=== PATIENT | male | born 1950 | race Caucasian/White ===

== ENCOUNTER 2016-11-07 02:44 | Inpatient (IN) | payer MEDICARE, OTHER ==
[~2016-11-07] VITALS: Ht 157.5 cm; Wt 74.5 kg
[2016-11-07] VITALS (23 sets, daily range): BP systolic 110–140; BP diastolic 56–78; PULSE 67–78; RESP 14–23; TEMP 98.3; Ht 157.5 cm; Wt 74.5 kg
[~2016-11-07 02:44] MED LIST: LANS30CA47 PO
[2016-11-07] MEDS ORDERED: MULTI PO (03:19)
[2016-11-07 03:42] LABS: BASOPHILS % 0.3 % (0.0-2.0); EOSINOPHILS # 0.2 10^3/ul (0.0-0.5); EOSINOPHILS % 1.6 % (0.0-7.0); HEMATOCRIT 45.9 % (42.0-52.0); HEMOGLOBIN 15.7 g/dl (14.0-18.0); LYMPHOCYTES # 1.2 10^3/ul (0.8-2.9); LYMPHOCYTES % 11.8 % (15.0-51.0); MEAN CORPUSCULAR HGB CONC 34.2 g/dl (32.0-37.0); MEAN CORPUSCULAR VOLUME 90.5 fl (82.0-101.0); MONOCYTE # 0.5 10^3/ul (0.3-0.9); MONOCYTES % 5.4 % (0.0-11.0); NEUTROPHIL # 7.9 10^3/ul (1.6-7.5); NEUTROPHILS % 80.6 % (39.0-77.0); PLATELET COUNT 276 10^3/UL (140-415); POSITIVE DIFF @See below; RED BLOOD COUNT 5.07 10^6/ul (4.70-6.10); WHITE BLOOD COUNT 9.8 10^3/ul (4.8-10.8)
[2016-11-07] MEDS ORDERED: morphine 4 MG/ML VIAL IV ONE (03:42)
[2016-11-07] MEDS ORDERED: ONDANSETRON 4 MG INJ IV ONE (03:42)
--- NOTE | 2016-11-07 03:42 | RADRPT ---
PROCEDURE: XR Abdomen. CLINICAL INDICATION: Abdominal pain TECHNIQUE: AP abdomen x-ray. COMPARISON: None. FINDINGS: Lower sternotomy wires seen. The bowel gas pattern is nonobstructive. Right-sided stool is seen. Mul tiple calcified pelvic phleboliths. Free air cannot be excluded on the supine radiograph. No bony ab normality is seen.. IMPRESSION: Grossly nonobstructed bowel gas pattern. RPTAT: HLBE Nena Riley Physician Date Time Electronically viewed and signed by Nena Riley Physician on 11/07/2016 03:42 LE/
[2016-11-07] MEDS ORDERED: SOD CHLORIDE 0.9% 500 ML IV ONE (04:00)
[2016-11-07 04:01] LABS: ALBUMIN 3.8 g/dl (3.3-4.9); ALBUMIN/GLOBULIN RATIO 1.15; BILIRUBIN,INDIRECT 0.3 mg/dl (0-1.1); BILIRUBIN,TOTAL 0.3 mg/dl (0.2-1.3); CALCIUM 9.7 mg/dl (8.4-10.2); CREATININE 0.81 mg/dl (0.61-1.24); TOTAL PROTEIN 7.1 g/dl (6.1-8.1)
--- NOTE | 2016-11-07 04:22 | RADRPT ---
PROCEDURE: CT Abdomen and pelvis without contrast. CLINICAL INDICATION: Abdominal pain. TECHNIQUE: CT scan of the abdomen and pelvis was performed on a multi-detector high-resolution CT scanner. Contiguous axial images were obtained from the lung bases to the ischial tuberosities wit hout intravenous contrast. Coronal and sagittal reformatted images were also obtained. Images were reviewed on the PACS workstation. One or more of the following dose reduction techniques were used: - Automated exposure control. - Adjustment of the mA and/or kV according to patient size. - Use of iterative reconstruction technique. Exam CTD/vol = 11.47 mGy. Total exam DLP = 713.14 mGy-cm. COMPARISON: None. FINDINGS: Evaluation of the lung bases demonstrates mild bibasilar atelectasis. Abdomen: The liver is normal in size. There is no focal mass or dilatation of the biliary tree. T he gallbladder is not distended. The spleen, pancreas and bilateral adrenal glands are within goldie l limits. Bilateral kidneys are normal in size with a small 9 mm isodense lesion within the posteri or mid left kidney suggestive of a hemorrhagic cyst. There is no radiopaque renal or ureteral calcu horace identified. There is no hydronephrosis or hydroureter. There is no retroperitoneal adenopathy. The abdominal aorta is of normal caliber with scattered atherosclerotic calcifications. There is a small umbilical hernia containing fat. There are small bubbles of free air within the mid to left upper abdomen adjacent to a loop of small bowel suggestive of perforation. There is surroun ding stranding. There is no bowel obstruction. A normal appendix is identified. There is divertic ulosis of the descending and sigmoid colon without evidence of diverticulitis. Pelvis: The bladder is unremarkable. The prostate is mildly enlarged. There are bilateral small in guinal hernias containing fat. There is mild pelvic free fluid. There is no significant pelvic keon opathy. Evaluation of the osseous structures demonstrates no suspicious lytic or blastic lesion. IMPRESSION: Focal small bowel perforation within the mid to left upper abdomen with small air bubbles and strand ing. Descending and sigmoid diverticulosis without evidence of diverticulitis. Small umbilical and bilateral inguinal hernias containing fat. Mildly enlarged prostate. Mild pelvic free fluid. Vascular calcifications reflective of atherosclerosis. Mild bibasilar atelectasis. A call report was made to ED nurse Zurdo) at 04:20 a.m. .Trevor Garrison MD, MD Date Time Electronically viewed and signed by .Trevor Garrison MD, MD on 11/07/2016 04:22 .T/
[2016-11-07] MEDS ORDERED: HYDROmorphONE 1 MG/ML SYG ONE (04:25)
[2016-11-07] MEDS ORDERED: HYDROmorphONE 1 MG/ML SYG IV ONE (04:31)
[2016-11-07] MEDS ORDERED: PIPER-TAZO 3.375 GM IV (PMX) 100 ML IVPB STA (05:27)
[2016-11-07] MEDS ORDERED: HYDROmorphONE 1 MG/ML SYG IV STA (05:28)
--- NOTE | 2016-11-07 05:36 | ERA ---
ER Documentation Chief Complaint Date/Time DATE: 11/07/16 TIME: 05:34 Chief Complaint lower abd pain 1 week wost today HPI This is a 65-year-old male lower abdominal pain with a week that is worse today. Pain is mild to moderate in intensity. He said the pain first started a week ago and was a dull ache in the lower abdomen, today became sharp and he started on distention of his abdomen. 2-3 episodes of vomiting which nonbilious. Obvious nausea. No diarrhea. No fevers or chills. No other current complaints. ROS All systems reviewed and are negative except as per history of present illness. Medications Home Meds Discontinued Reported Medications Multivitamins* (Theragran*) 1 Tab Tab, 1 TAB PO DAILY, TAB 11/07/16 Lansoprazole* (Prevacid*) 30 Mg Capsule.dr, 30 MG PO DAILY, CAP 01/19/14 Allergies Allergies: Coded Allergies: Sulfa (Sulfonamide Antibiotics) (Unverified Allergy, Unknown, 11/07/16) family history having sulfa drugs allergy PMhx/Soc History of Surgery: Yes (brain sx,chest sx for tumor,lt knee opa,) Anesthesia Reaction: No Hx Neurological Disorder: No Hx Respiratory Disorders: No Hx Cardiac Disorders: No Hx Psychiatric Problems: No Hx Miscellaneous Medical Probl: No Hx Substance Use: No Hx Tobacco Use: No Smoking Status: Never smoker Physical Exam Vitals Vital Signs Date Time Temp Pulse Resp B/P Pulse Ox O2 Delivery O2 Flow Rate FiO2 11/07/16 05:13 98.3 63 16 110/78 97 Nasal Cannula 2.0 11/07/16 02:53 98.3 68 20 119/74 99 Physical Exam Const: [] Head: Atraumatic Eyes: Normal Conjunctiva ENT: Normal External Ears, Nose and Mouth. Neck: Full range of motion..~ No meningismus. Resp: Clear to auscultation bilaterally Cardio: Regular rate and rhythm, no murmurs Abd: Soft, non tender, non distended. Normal bowel sounds Skin: No petechiae or rashes Back: No midline or flank tenderness Ext: No cyanosis, or edema Neur: Awake and alert Psych: Normal Mood and Affect Result Diagram: 11/07/16 0328 11/07/16 0328 Results 24 hrs Laboratory Tests Test 11/07/16 03:28 White Blood Count 9.810^3/ul Red Blood Count 5.0710^6/ul Hemoglobin 15.7g/dl Hematocrit 45.9% Mean Corpuscular Volume 90.5fl Mean Corpuscular Hemoglobin 31.0pg Mean Corpuscular Hemoglobin Concent 34.2g/dl Red Cell Distribution Width 12.0% Platelet Count 13034^3/UL Mean Platelet Volume 10.0fl Neutrophils % 80.6% Lymphocytes % 11.8% Monocytes % 5.4% Eosinophils % 1.6% Basophils % 0.3% Nucleated Red Blood Cells % 0.0/100WBC Neutrophils # 7.910^3/ul Lymphocytes # 1.210^3/ul Monocytes # 0.510^3/ul Eosinophils # 0.210^3/ul Basophils # 0.010^3/ul Nucleated Red Blood Cells # 0.010^3/ul Sodium Level 140mmol/L Potassium Level 4.0mmol/L Chloride Level 102mmol/L Carbon Dioxide Level 29mmol/L Anion Gap 13 Blood Urea Nitrogen 15mg/dl Creatinine 0.81mg/dl Glucose Level 155mg/dl Calcium Level 9.7mg/dl Total Bilirubin 0.3mg/dl Direct Bilirubin 0.00mg/dl Indirect Bilirubin 0.3mg/dl Aspartate Amino Transf (AST/SGOT) 21IU/L Alanine Aminotransferase (ALT/SGPT) 33IU/L Alkaline Phosphatase 49IU/L Total Protein 7.1g/dl Albumin 3.8g/dl Globulin 3.30g/dl Albumin/Globulin Ratio 1.15 Lipase 204U/L Current Medications Medications (Trade) Dose Ordered Sig/Benny Route PRN Reason Start Time Stop Time Status Last Admin Dose Admin Morphine Sulfate (morphine) 4 mg ONCE ONCE IV 11/07/16 03:42 11/07/16 03:43 DC 11/07/16 03:47 Ondansetron HCl 4 mg 4 mg ONCE ONCE IV 11/07/16 03:42 11/07/16 03:43 DC 11/07/16 03:47 Sodium Chloride (NS) 500 ml @ 500 mls/hr Q1H ONCE IV 11/07/16 04:00 11/07/16 04:59 DC 11/07/16 03:48 Hydromorphone HCl (Dilaudid) 1 mg STK-MED ONCE .ROUTE 11/07/16 04:25 11/07/16 04:26 DC Hydromorphone HCl 1 mg 1 mg ONCE ONCE IV 11/07/16 04:31 11/07/16 04:32 DC 11/07/16 04:52 Piperacillin Sod/ Tazobactam Sod (Zosyn 3.375gm/ 100 ml (Pmx)) 100 ml @ 200 mls/hr ONCE STAT IVPB 11/07/16 05:27 11/07/16 05:56 Hydromorphone HCl (Dilaudid) 1 mg ONCE STAT IV 11/07/16 05:28 11/07/16 05:29 DC 11/07/16 05:33 Procedures/MDM SravanMedical decision makin-year-old gentleman with perforated viscus. CT does show air under the diaphragm. I consulted with the on-call surgeon and he recommended admission and the patient able, to the patient's earlier this morning. On-call physician for Dr. Yang was made aware and agreed with assessment plan. Departure Diagnosis: Primary Impression: Abdominal pain Qualified Code: R10.84 - Generalized abdominal pain Condition: Stable ANGELINA ANTONY Nov 07, 2016 05:36
[2016-11-07] MEDS ORDERED: SUCCINYLCHOLINE CHLORIDE 100 MG/5 ML SYG IV ONE (07:00)
[2016-11-07] MEDS ORDERED: DEXTROSE 5%-0.45% NACL 1,000 ML IV SCH (07:30)
[2016-11-07] MEDS: PIPER-TAZO 3.375 GM IV (PMX) 100 ML IVPB SCH ×3 (08:48→18:00)
[2016-11-07] MEDS ORDERED: PANTOPRAZOLE 40 MG INJ IV SCH (09:00)
[2016-11-07 09:03] LABS: INR 0.98
[2016-11-07 09:04] LABS: PARTIAL THROMBOPLASTIN TIME 29.5 Sec (25.0-35.0)
--- NOTE | 2016-11-07 09:15 | RADRPT ---
PROCEDURE: XR Chest. CLINICAL INDICATION: Preop. TECHNIQUE: Frontal view chest x-ray. COMPARISON: Abdomen pelvis CT of the same day. FINDINGS: The cardiomediastinal silhouette is unremarkable. Aortic atherosclerotic vascular calcifications are identified. Bibasilar atelectasis is noted. No pneumothorax, pleural effusion or consolidation is seen. No acute osseous abnormality is noted. There are post cardiac surgery changes with sternotomy wires and mediastinal clips. IMPRESSION: 1. Bibasilar atelectasis. 2. Aortic atherosclerosis. 3. Prior sternotomy. 4. Otherwise no acute cardiopulmonary abnormality. RPTAT: HH .Sourav Gerard MD, Date Time Electronically viewed and signed by .Sourav Gerard MD, on 11/07/2016 09:14 .N/
--- NOTE | 2016-11-07 09:22 | HP ---
DATE OF ADMISSION: 11/07/2016 IDENTIFYING DATA: The patient is a 65-year-old male admitted to the hospital with abdominal pain of approximately six days' duration. HISTORICAL EVENTS: The patient states it was six days ago he the noted the onset of poorly-localized lower abdominal discomfort that waxed and waned until approximately 12 hours prior to admission, when the pain markedly increased. Importantly, he continued to have bowel movements up until 12 hours prior to admission without symptoms of gastrointestinal bleeding. He had some mild discomfort described as burning in the back of his throat on a couple of occasions during this week, that seemed to occur after meals. There has been no exertional radiating neck, arm, or jaw discomfort, or substernal chest discomfort. Yesterday, he did note some chills and sweats. He has had no pathologic symptoms. PRESENT MEDICATIONS: 1. Multivite. 2. Prevacid 30 mg daily. PAST MEDICAL HISTORY: 1. History of gastroesophageal reflux. 2. History of malignant brain tumor in 1965. Received cobalt treatment. Plate was required. 3. 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 4. History of a "bursa sac" removed from his neck. 5. Left knee arthroscopic surgery in 2010. 6. Colonoscopy in February 2013 that revealed a polyp. 7. No history of diabetes, heart disease. 8. History of low testosterone level. SOCIAL HISTORY: He is a nonsmoker. Rarely drinks. FAMILY HISTORY: Family history to be reviewed later. PHYSICAL EXAMINATION: GENERAL APPEARANCE: [place] male. VITAL SIGNS: BP 120/72, respirations were 18. He was afebrile. HEENT: Extraocular muscles were full. Nose, mouth and throat, normal. NECK: Supple. There was no jugular venous distention, thyroid enlargement, adenopathy. LUNGS: Clear. HEART: Rhythm regular. 1/6 systolic murmur. No 3rd or 4th sound. ABDOMEN: Bowel sounds are present. Liver and spleen not enlarged. There was minimal tenderness involving the suprapubic, right lower and left lower quadrant. RECTAL EXAM: Not performed. EXTREMITIES: No edema. No calf tenderness. NEUROLOGIC: No lateralizing motor weakness. IMPRESSION: Viscus perforation of small bowel versus colon. GI and surgery to see. PLAN: Continue Zosyn. IV fluids have been ordered. To continue NPO status. Dictated By: Lyle Yang MD /kayce/cristobal /Document#: [id number]
[2016-11-07] MEDS: HYDROmorphONE 1 MG/ML SYG IV PRN (13:04)
--- NOTE | 2016-11-07 14:00 | CONS ---
Date/Time of Note Date/Time of Note DATE: 11/07/16 TIME: 13:59 Assessment/Plan Assessment/Plan Additional Assessment/Plan [facility] INPATIENT CONSULTATION NOTE DATE OF SERVICE: 11/07/2016 PLACE OF SERVICE: [facility], fifth floor ASSESSMENT AND PLAN: A very-pleasant 65-year-old gentleman with a rather complicated past history involving multiple different types of malignancies, presenting with a small bowel localized perforation of unclear etiology. Patient requires surgical exploration to clarify the etiology as well as deal with the perforation. There is a chance that this may be from a malignant process, but because of presence of bowel perforation and location, I recommended we proceed with surgery as soon as possible. I explained the approach of laparoscopic exploration with possible open exploration, possible partial bowel resection, and possible ostomy with the patient and his longtime friend and answered all of their questions. Patient and family appear to understand and agreed with plans. With above assessment, I've recommended the followin. Keep n.p.o. 2. Continue on broad-spectrum antimicrobials 3. To the operating room for above Thank you very much for having me involved in the care of this very pleasant patient and wonderful family. If you have any questions, please feel free to contact me at [phone]. Nature of presenting problem: High severity Please note that, given the extensive number of diagnoses or management options , the moderate amount and/or complexity of data needed to be reviewed, and high risk of complications and/or morbidity or mortality, this qualifies as high complexity type of decision-making. Disclaimers: 1. Inadvertent spelling and grammatical errors are likely due to electronic health record (EHR)/dictation software use and do not reflect on the quality of delivered patient care. 2. The electronic timestamp recorded on this note does not necessarily reflect the actual date and time of the visit. 3. Portions of this note are created through electronic templates and computer algorithms that may bring in information either from the system or from other physicians and providers that are outside of my control and may not be always accurate. In general (but not always) this happens either in the beginning or at the end of the note. My portions of the gathered data are generally dictated in 1 continuous block of text and entered into one field in the EHR. 4. There may be other unanticipated errors in the note that are outside of my control. I can only attest to the portions of the note that I have created. Updated clinical summary: A very-pleasant 65-year-old gentleman with a rather complicated past history involving multiple different types of malignancies, presenting with a small bowel localized perforation of unclear etiology. Comorbidities: 1. GERD. 2. History of malignant brain tumor in 1965. Received cobalt treatment with plate insertion. 3. 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 4. History of a "bursa sac" removed from his neck. 5. Left knee arthroscopic surgery in 2010. 6. Colonoscopy in February 2013 that revealed a polyp. 7. No history of diabetes, heart disease. 8. History of low testosterone level. CONSULTATION REQUESTED BY: Di Yang MD Dear Dr. Yang: Thank you very much for the opportunity to be involved in the care of this very pleasant gentleman and his wonderful family. HISTORY OF PRESENT ILLNESS: The patient is a very pleasant 65-year-old gentleman with above-mentioned comorbidities who were kindly asked consult regarding management of possible perforated small intestine. Patient reported having abdominal pain since last which would make it approximately week in duration. Pain was in mid abdomen and progressively worse over the last 2 days. Associated nausea and vomiting but no blood in the stool or urine. Last bowel movement was yesterday and no issues with diarrhea or constipation. Patient had intentional weight loss a few years ago with dieting , but no major reported weight changes over the last 6 months. No radiation of pain. No major exacerbating or alleviating factors. Pressure-like and at times sharp, 7 out of 10 at its worse. No other major complaints. ALLERGIES: NO KNOWN DRUG ALLERGIES MEDICATIONS Documented in the electronic records and reviewed by me. Please see the electronic records for details, as well as details for inpatient medications which were also reviewed by me. SOCIAL HISTORY: The patient currently retired.-Tob;-ETOH (very occasionally drinks);-IVDU FAMILY HISTORY: There are no significant medical, surgical or oncologic issues in the family as reported by the patient or reflected in the chart. REVIEW OF SYSTEMS: Other than mentioned above, there were no other pertinent positives or pertinent negatives in an otherwise complete 14 point review of systems. PHYSICAL EXAMINATION GENERAL: The patient appears to be a very pleasant gentleman of non- descent lying in bed, appearing stated age, and otherwise in no acute distress. BMI: 30 VITAL SIGNS: AVSS (please also see auto important data if available as well as the electronic records) HEENT: Normocephalic and atraumatic. Extraocular muscles and hearing are grossly intact bilaterally and symmetrically. Sclerae are nonicteric. Oral cavity is clear; oral mucosa appear to be pink and moist. Dentition: fair. Patient's forehead contains a surgical scar and there appears to be pulsations visible on the forehead. NECK: Supple. There is no lymphadenopathy or JVD. There is no submental, submandibular or supraclavicular lymphadenopathy. CHEST: Rises symmetrically with each breath; patient is breathing comfortably. There are no audible wheezes, rales or rhonchi on the gross exam. HEART: Pulse is regular and palpable on the right wrist. Capillary refill is normal. Carotid pulses are palpable bilaterally and symmetrically in the neck. EXTREMITIES: Lower extremities contain no pitting edema around the ankles bilaterally and symmetrically. ABDOMEN: Abdomen is soft, mild to moderately tender in the mid abdomen and nondistended. No evidence of ascites, organomegaly, caput medusae, engorged subcutaneous veins, or other abnormalities. There are no peritoneal signs or guarding. SKIN: Appears to be pink and feels warm to touch. NEUROLOGIC: Awake, alert, and follows commands appropriately. LABORATORY DATA: See below IMAGING: See electronic chart. Please note that I've personally reviewed all pertinent available images and I agree in general with their overall reported findings. CT abdomen and pelvis 11/07/2016 [facility] IMPRESSION: Focal small bowel perforation within the mid to left upper abdomen with small air bubbles and stranding. Descending and sigmoid diverticulosis without evidence of diverticulitis. Small umbilical and bilateral inguinal hernias containing fat. Mildly enlarged prostate. Mild pelvic free fluid. Vascular calcifications reflective of atherosclerosis. Mild bibasilar atelectasis. Consultation Date/Type/Reason Admit Date/Time Nov 07, 2016 at 05:31 Social History Smoking Status: Never smoker Exam/Review of Systems Vital Signs Vitals Vital Signs Date Time Temp Pulse Resp B/P Pulse Ox O2 Delivery O2 Flow Rate FiO2 11/07/16 12:44 73 11/07/16 11:49 100.0 20 115/56 96 11/07/16 06:40 Room Air 11/07/16 05:13 2.0 Intake and Output 11/06/16 11/06/16 11/07/16 15:00 23:00 07:00 Intake Total 600 ml Balance 600 ml Results Result Diagram: 11/07/16 0328 11/07/16 0328 Results 24 hrs Laboratory Tests Test 11/07/16 03:28 11/07/16 08:27 White Blood Count 9.8 Red Blood Count 5.07 Hemoglobin 15.7 Hematocrit 45.9 Mean Corpuscular Volume 90.5 Mean Corpuscular Hemoglobin 31.0 Mean Corpuscular Hemoglobin Concent 34.2 Red Cell Distribution Width 12.0 Platelet Count 276 Mean Platelet Volume 10.0 Neutrophils % 80.6 H Lymphocytes % 11.8 L Monocytes % 5.4 Eosinophils % 1.6 Basophils % 0.3 Nucleated Red Blood Cells % 0.0 Neutrophils # 7.9 H Lymphocytes # 1.2 Monocytes # 0.5 Eosinophils # 0.2 Basophils # 0.0 Nucleated Red Blood Cells # 0.0 Sodium Level 140 Potassium Level 4.0 Chloride Level 102 Carbon Dioxide Level 29 Anion Gap 13 Blood Urea Nitrogen 15 Creatinine 0.81 Glucose Level 155 Calcium Level 9.7 Total Bilirubin 0.3 Direct Bilirubin 0.00 Indirect Bilirubin 0.3 Aspartate Amino Transf (AST/SGOT) 21 Alanine Aminotransferase (ALT/SGPT) 33 Alkaline Phosphatase 49 Total Protein 7.1 Albumin 3.8 Globulin 3.30 H Albumin/Globulin Ratio 1.15 Lipase 204 Prothrombin Time 13.0 Prothrombin Time Ratio 1.0 INR International Normalized Ratio 0.98 Activated Partial Thromboplast Time 29.5 Medications Medications Current Medications Hydromorphone HCl 0.5 mg 0.5 mg Q4H PRN IV PAIN Last administered on 11/07/16 13:04; Admin Dose 0.5 MG; Start 11/07/16 at 07:30 Dextrose/Sodium Chloride 1,000 ml @ 125 mls/hr Q8H IV Last administered on 08:16; Admin Dose 125 MLS/HR; Start 11/07/16 at 07:30 Piperacillin Sod/ Tazobactam Sod (Zosyn 3.375gm/ 100 ml (Pmx)) 100 ml @ 200 mls /hr Q6 IVPB Last administered on 11/07/16 12:47; Admin Dose 200 MLS/HR; Start 11/07/16 at 08:30 Pantoprazole (Protonix Iv) 40 mg DAILY@06 IV Last administered on 11/07/16t 09: 16; Admin Dose 40 MG; Start 11/07/16 at 09:00 JOHANNA NOE M.D. Nov 07, 2016 14:00
[2016-11-07] MEDS ORDERED: BUPIVACAINE 0.5%/EPI (SDV) 10 ML INJ ONE (16:02)
--- NOTE | 2016-11-07 16:10 | RADRPT ---
Vent Rate: 70 bpm RR Interval: 0 msec [place] Interval: 150 msec QRS Duration: 90 msec QT Interval: 382 msec QTC Interval: 412 msec P-R-T [place]: 64 - 70 - 63 degrees Normal sinus rhythm Septal infarct , age undetermined Abnormal ECG Electronically Signed By: Otis Tavares [id number]
[2016-11-07] MEDS ORDERED: ROCURONIUM 50 MG INJ ONE (16:36)
[2016-11-07] MEDS ORDERED: MIDAZOLAM 1 MG/ML 2 ML INJ ONE (16:36)
[2016-11-07] MEDS ORDERED: PROPOFOL 20 ML ONE (16:36)
[2016-11-07] MEDS ORDERED: LIDOCAINE 1% (MDV) 20 ML INJ ONE (16:37)
[2016-11-07] MEDS ORDERED: ROPIVACAINE 0.2% 20 ML VIAL ONE (16:39)
[2016-11-07] MEDS ORDERED: DEXAMETHASONE 4 MG/ML 1 ML INJ ONE (18:55)
[2016-11-07] MEDS ORDERED: ONDANSETRON 4 MG INJ ONE (18:55)
[2016-11-07] MEDS ORDERED: FAMOTIDINE 20 MG INJ ONE (18:55)
[2016-11-07] MEDS ORDERED: MEPERIDINE 25 MG INJ IV PRN (19:30)
[2016-11-07] MEDS ORDERED: METOCLOPRAMIDE 10 MG INJ IV PRN (19:30)
[2016-11-07] MEDS ORDERED: DIPHENHYDRAMINE 50 MG INJ IV PRN (19:30)
[2016-11-07] MEDS ORDERED: LORAZEPAM 2 MG INJ IV PRN (19:30)
[2016-11-07] MEDS ORDERED: ONDANSETRON 4 MG INJ IV PRN (19:30)
[2016-11-07] MEDS ORDERED: HYDROmorphONE (0.2 MG/ML) 10ML SYG IV PRN ×2 (19:30)
[2016-11-07] MEDS ORDERED: SUGAMMADEX SODIUM 200 MG/2 ML VIAL IV ONE (19:50)
[2016-11-07] MEDS ORDERED: NA PHOSPHATE/BIPHOS 133 ML ENEMA PR PRN (20:00)
[2016-11-07] MEDS ORDERED: HYDROmorphONE 1 MG/ML SYG IV PRN ×2 (20:00)
[2016-11-07] MEDS ORDERED: HYDROCODONE/APAP (5/325) TAB PO PRN ×2 (20:00)
[2016-11-07] MEDS ORDERED: BISACODYL 10 MG SUPP PR PRN (20:00)
--- NOTE | 2016-11-07 20:15 | OPR ---
Date/Time of Note Date/Time of Note DATE: 11/07/16 TIME: 20:14 Operative Report Surgeon see signature line Operative\\Procedure Findings [facility] INPATIENT OPERATIVE NOTE PLACE OF SERVICE: [facility] DATE OF SURGERY: 11/07/2016 PREOPERATIVE DIAGNOSIS: 1. Perforated viscus 2. History of malignant brain tumor in 1965. Received cobalt treatment with plate insertion. 3. 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 4. History of a "bursa sac" removed from his neck. 5. Left knee arthroscopic surgery in 2010. 6. Colonoscopy in February 2013 that revealed a polyp. 7. No history of diabetes, heart disease. 8. History of low testosterone level. 9. GERD. POSTOPERATIVE DIAGNOSIS: 1. Perforated small intestine from small intestine diverticulosis and diverticulitis 2. History of malignant brain tumor in 1965. Received cobalt treatment with plate insertion. 3. 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 4. History of a "bursa sac" removed from his neck. 5. Left knee arthroscopic surgery in 2010. 6. Colonoscopy in February 2013 that revealed a polyp. 7. No history of diabetes, heart disease. 8. History of low testosterone level. 9. GERD. OPERATION: 1. Laparoscopic, hand-assisted (hybrid) partial enterectomy (60 cm proximal jejunum) with primary anastomosis 2. Lysis of adhesions 3. Abdominal lavage 4. Umbilical hernia repair (no mesh) SURGEON: Johanna Noe M.D. BRUISE TRIMMER: Stewart ANESTHESIA: General endotracheal tube anesthesia ANESTHESIOLOGIST: Rema Mcdonnell M.D. BRIEF SUMMARY: An otherwise uncomplicated laparoscopic, hand-assisted (hybrid) partial enterectomy (60 cm proximal jejunum) with primary anastomosis, lysis of adhesions, abdominal lavage, umbilical hernia repair (no mesh) was performed with findings of perforated small intestine from small intestine diverticulosis and diverticulitis. Updated clinical summary: A very-pleasant 65-year-old gentleman with a rather complicated past history involving multiple different types of malignancies, presenting with a small bowel localized perforation of unclear etiology. Comorbidities: 1. GERD. 2. History of malignant brain tumor in 1965. Received cobalt treatment with plate insertion. 3. 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 4. History of a "bursa sac" removed from his neck. 5. Left knee arthroscopic surgery in 2010. 6. Colonoscopy in February 2013 that revealed a polyp. 7. No history of diabetes, heart disease. 8. History of low testosterone level. BRIEF HISTORY: The patient is a very pleasant 65-year-old gentleman with a rather complicated past history involving multiple different types of malignancies, presenting with a small bowel localized perforation of unclear etiology. Patient requires surgical exploration to clarify the etiology as well as deal with the perforation. There is a chance that this may be from a malignant process, but because of presence of bowel perforation and location, I recommended we proceed with surgery as soon as possible. I explained the approach of laparoscopic exploration with possible open exploration, possible partial bowel resection, and possible ostomy with the patient and his longtime friend and answered all of their questions. We reviewed the operation in detail as well as the risks, benefits, alternatives, and expected outcomes of this operation. After careful consideration of all the risks, benefits, and alternatives, the patient and family appeared to understand those risks and wished to proceed with surgery. For a detailed report of my consultation with patient and family, please refer to my separate consultation note. STATEMENT OF THE INFORMED CONSENT: The patient and family appeared to understand the risks of the operation to include, but not be limited to risk of postoperative pain and scar tissue, possible infection or bleeding requiring other interventions such as opening the wound, placement of drainage catheters, or other operative interventions; possible injury to surrounding to structures including bowel, bladder, bile duct, or blood vessels, or solid organs such as liver, kidney, or pancreas requiring other interventions or procedures; possible leakage of bowel from anastomotic sites or suture lines causing significant increase in morbidity and mortality and requiring multiple interventions including but not limited to, placement of drainage catheters, imaging studies, as well as operative interventions; possible other source of sepsis such as urinary tract infections or pneumonias, or other sources of potentially life threatening problems such as deep venous thrombus formation causing pulmonary embolism, myocardial arrhythmias and infarctions, and even . After careful consideration of all their options, the patient and family appeared to understand and wished to proceed with surgery. DESCRIPTION OF PROCEDURE: After obtaining informed consent, the patient was brought into the operating room and was placed in a normal supine position, where successful general endotracheal tube anesthesia was performed. Intravenous access was already in place and intravenous antimicrobials had been appropriately chosen and dosed prior to the operation. The patient's abdominal skin was prepped and draped from the nipple line down to the level of the upper thighs in the usual sterile fashion. We then called a surgical time-out where the patient's identification, date of , nature of the operation, allergies , presence of intravenous antimicrobials, presence of needed equipment, and any other concerns were reviewed and agreed upon by all members of the operating room team. We then started the operation by placing a 5 mm skin incision in the left upper quadrant midclavicular subcostal area using scalpel to go through skin and then placed a 5 mm applied trocar into the peritoneal space using direct entry technique visualizing all the layers of the abdominal wall as we entered. We insufflated the abdominal cavity to a maximum pressure of 15 mmHg. Note that there was no injury to underlying structures. We then placed another 5 mm skin incision in the left lower quadrant and one in the umbilicus through a pre- existing small less than 1 cm hernia that we knew preoperatively. This was all under direct visualization and after injection of the sites with quarter percent Marcaine. We proceeded to do a laparoscopic exploration of the abdominal cavity. We encountered matted small intestine and mid abdominal area and we quickly realized that pure laparoscopy was not going to be sufficient for adequate exploration. For this reason, I placed a 9 cm skin incision to include the umbilicus in the middle using scalpel to go through the skin and then cautery to go through the subcutaneous fat as well as the fascia in the midline and placed a GelPort device and converted to a laparoscopic hand-assisted approach with portions of the operation done through the hand assist in an open fashion, and hence the high-grade nature of the procedure. With careful lysis of adhesions, we were able to determine that the patient had perforation that appeared to be sealed in proximal jejunum in an area that eventually was shown to be diverticular disease of the small intestine. We carefully ran the bowel from the ligament of Treitz down to the ileocecal valve and noted diverticular disease near the area of proximal jejunum with a perforation was noted. We also inspected the ascending, transverse, descending , and sigmoid colon down into the pelvis and noticed no other major abnormalities or issues that require surgical resection. The bowel appeared to be viable. There is minimal amount of purulent fluid in the abdominal cavity that was suctioned off using the suction field sampling technician. I did not see any evidence of malignancy. I also felt the peritoneal surfaces as well as the anterior and posterior surfaces of the left and right lobe of the liver and did not notice any other abnormalities. With this information, we exteriorized the area of perforation of the proximal jejunum and performed resection of the area to include 60 cm of small intestine that contained the majority of the diverticular disease that was present. We used combination of hand-held blue (all) load of the DOMENICO stapler to transect proximally and distally and then used the 5 mm LigaSure device to come across the mesentery of the bowel taking care to come down in a V shape and include the 2 areas that appear to be enlarged lymph nodes right underneath the area of the perforation. Again my suspicion for malignancy was low. We sent the resected bowel to pathology for permanent sections marking the distal and using a silk suture. I then performed a standard [id number], functional end-to-end anastomosis using several enterotomies on the antimesenteric side of the bowel and connecting the 2 using wondering of the bowel (blue) load of the hand-held DOMENICO stapler, followed by closing of the enterotomy size using running 4-0 PDS suture and reinforcement with interrupted 3-0 silk Lembert style sutures. We also placed a silk suture at the angle of sorrow and close the mesenteric defect using running 3-0 Vicryl suture. This all came together very nicely and the anastomosis was widely patent. We then changed gloves and remove the towels of it used to isolate the anastomosis and dropped the bowel back into the abdominal cavity. We then used approximately 2 L of normal saline to irrigate the abdominal cavity and suctioned the excess to a clear drainage in all 4 quadrants. We then removed all her equipment from the abdominal cavity, closed the midline fascia using running #1 PDS suture after removal of the hernia sac and sending it to pathology for permanent sections, washed the wounds with copious amounts of normal saline, and then closed the skin using running 4-0 Monocryl suture in the midline and interrupted 4-0 Monocryl suture for the 2 endoscopic 5 mm port sites. We injected the sites with quarter percent Marcaine and then concluded the operation. Light dressing was then applied. At the end of the operation, both the sponge count and needle count were reportedly correct x2. The patient tolerated the procedure without any reported complications. ESTIMATED BLOOD LOSS: Less than 10 mL. BLOOD OR BLOOD PRODUCT TRANSFUSIONS: None to my knowledge. SPECIMENS: 1. Proximal jejunum (60 cm) with distal margin marked with a silk suture 2. Umbilical hernia sac COMPLICATIONS: None. DISPOSITION: Recovery area. Disclaimers: 1. Inadvertent spelling and grammatical errors are likely due to electronic health record (EHR)/dictation software use and do not reflect on the quality of delivered patient care. 2. The electronic timestamp recorded on this note does not necessarily reflect the actual date and time of the visit. 3. Portions of this note are created through electronic templates and computer algorithms that may bring in information either from the system or from other physicians and providers that are outside of my control and may not be always accurate. In general (but not always) this happens either in the beginning or at the end of the note. My portions of the gathered data are generally dictated in 1 continuous block of text and entered into one field in the EHR. 4. There may be other unanticipated errors in the note that are outside of my control. I can only attest to the portions of the note that I have created. JOHANNA NOE M.D. Nov 07, 2016 20:15
[2016-11-07] MEDS: D5W-0.45 NACL + KCL 20 MEQ 1,000 ML IV SCH (21:54)
[2016-11-07 22:42] LABS: ADD UMIC YES; UR ASCORBIC ACID NEGATIVE (NEGATIVE); UR BILIRUBIN (Dip) NEGATIVE (NEGATIVE); UR BLOOD (Dip) 2+ mg/dL (NEGATIVE); UR CLARITY CLOUDY (CLEAR); UR COLOR YELLOW (YELLOW); UR GLUCOSE (Dip) NEGATIVE (NEGATIVE); UR KETONES (Dip) NEGATIVE (NEGATIVE); UR LEUKOCYTE ESTERASE (Dip) NEGATIVE Leu/ul (NEGATIVE); UR NITRITE (Dip) NEGATIVE (NEGATIVE); UR RBC 22 /HPF (0-5); UR SPECIFIC GRAVITY (Dip) 1.025 (1.003-1.030); UR TOTAL PROTEIN (Dip) 1+ mg/dl (NEGATIVE); UR UROBILINOGEN (Dip) NEGATIVE (NEGATIVE)
[2016-11-08] VITALS (11 sets, daily range): BP systolic 100–151; BP diastolic 56–78; PULSE 64–72; RESP 17–20
[2016-11-08] MEDS: PIPER-TAZO 3.375 GM IV (PMX) 100 ML IVPB SCH ×3 (00:59→13:07)
[2016-11-08] MEDS: D5W-0.45 NACL + KCL 20 MEQ 1,000 ML IV SCH ×2 (05:58→13:07)
--- NOTE | 2016-11-08 07:14 | CONS ---
DATE OF ADMISSION: 11/07/2016 DATE OF CONSULTATION: 11/07/2016 Thank you for having me see this patient. HISTORY OF PRESENT ILLNESS: As you know, he is a 65-year-old gentleman, who comes into the hospital with a probable small bowel perforation. Apparently, the patient was in his usual state of health until this past . He developed abdominal cramping. This felt as if he had the stomach flu, but he had no other associated symptoms, such as diarrhea or fever. Nonetheless, he went to [place] over the weekend. He felt progressively worse with the pain becoming more moderate from a mild onset. In addition, he had difficulty focusing and felt in general poorly. He then developed a shaking chill and worsening abdominal pain. This became so severe he sought medical attention yesterday. He denies ingestion of any foreign body that he knows of. He denies any cocaine usage. He denies any antecedent gastrointestinal problem but did have a colon polyp removed by Dr. Murrell 2 years ago. Apparently, he has a history of reflux in the past. He did have an episode of nausea and vomiting when his pain was at its worst. Since being admitted and being placed on antibiotics, he feels somewhat better. He had a CT scan performed since admission, which was consistent with a proximal to mid small bowel perforation, which I have reviewed with Dr. Larsen. He denies any aspirin or nonsteroidal use. He denies any diarrhea, constipation, rectal bleeding or melena. PAST MEDICAL HISTORY: Includes hospitalizations for malignant brain tumor, benign lung tumor, knee surgery and basal cell tumor removed. Adult illnesses: Denies heart disease, hypertension, kidney disease, lung disease, , diabetes Childhood: No asthma or scarlet fever. ALLERGIES: SULFA. MEDICATIONS: Vitamins only. SOCIAL HISTORY: Patient is retired from the post office. He does not smoke. He drinks less than 1 alcohol beverage per week. FAMILY HISTORY: Remarkable for father with colon cancer. REVIEW OF SYSTEMS: Negative, except as noted above. PHYSICAL EXAMINATION: GENERAL: Physical examination shows in general the patient to be a well-developed, elderly white male in no acute distress. VITAL SIGNS: Temperature 100, pulse 72, respirations 20, blood pressure 115/56. SKIN: Clear. HEENT: Negative. CHEST: Clear to percussion and auscultation. CARDIAC: No murmurs or gallops. ABDOMEN: Soft. Mild, diffuse left periumbilical tenderness, no rebound or rigidity, quiet bowel sounds. RECTAL: Brown stool. LABORATORY DATA: Remarkable for white count 9.8, hemoglobin 15, hematocrit 45, platelets 276,000. PT/INR 1.0, PTT 29.5. Chemistries: AST 21, ALT 33, alk phos 49. IMPRESSION: Based on review of the CT scan with Dr. Larsen, the patient has a proximal to mid small bowel perforation. There is no history of foreign body ingestion or evidence of a diverticulum or tumor. In addition, the patient denies any other issues, such as cocaine usage, which has been associated with small bowel perforations. Nonetheless, given the fact that he has evidence of perforation, surgical exploration will likely need to be done per the discretion of surgery. PLAN: 1. I have discussed the above with the patient, his niece and a woman who accompanies him. 2. Continue antibiotics per orders. 3. Empiric proton pump inhibitor has been started and will be continued. Thank you for having me see this patient. Dictated By: Jose Carlos Morales MD /kayce/sheba /Document#: [id number]
[2016-11-08 07:16] LABS: BASOPHILS % 0.1 % (0.0-2.0); HEMATOCRIT 40.3 % (42.0-52.0); LYMPHOCYTES # 0.7 10^3/ul (0.8-2.9); LYMPHOCYTES % 5.4 % (15.0-51.0); MEAN CORPUSCULAR HEMOGLOBIN 31.5 pg (29.0-33.0); MEAN CORPUSCULAR HGB CONC 34.7 g/dl (32.0-37.0); MEAN CORPUSCULAR VOLUME 90.6 fl (82.0-101.0); MEAN PLATELET VOLUME 9.7 fl (7.4-10.4); MONOCYTE # 0.7 10^3/ul (0.3-0.9); MONOCYTES % 5.2 % (0.0-11.0); NEUTROPHIL # 11.6 10^3/ul (1.6-7.5); NEUTROPHILS % 89.1 % (39.0-77.0); PLATELET COUNT 283 10^3/UL (140-415); RED BLOOD COUNT 4.45 10^6/ul (4.70-6.10); RED CELL DISTRIBUTION WIDTH 12.1 % (11.5-14.5)
[2016-11-08 07:37] LABS: INR 1.16; PARTIAL THROMBOPLASTIN TIME 34.9 Sec (25.0-35.0); PROTIME 14.9 Sec (12.2-14.2); PT RATIO 1.2
[2016-11-08 07:43] LABS: ALBUMIN 2.5 g/dl (3.3-4.9); ALBUMIN/GLOBULIN RATIO 1.08; BILIRUBIN,INDIRECT 0.6 mg/dl (0-1.1); BILIRUBIN,TOTAL 0.6 mg/dl (0.2-1.3); CALCIUM 8.9 mg/dl (8.4-10.2); CREATININE 0.82 mg/dl (0.61-1.24); TOTAL PROTEIN 4.8 g/dl (6.1-8.1)
[2016-11-08 07:46] LABS: CALCIUM 8.7 mg/dl (8.4-10.2); CREATININE 0.82 mg/dl (0.61-1.24); MAGNESIUM 2.1 mg/dl (1.7-2.5); PHOSPHORUS 3.6 mg/dl (2.5-4.9); POTASSIUM 4.7 mmol/L (3.5-5.1)
[2016-11-08] MEDS: HYDROmorphONE 1 MG/ML SYG IV PRN ×2 (08:26→17:06)
[2016-11-08] MEDS: ENOXAPARIN 40 MG/0.4 ML SYG SC SCH (08:35)
[2016-11-08] MEDS ORDERED: FAMOTIDINE 20 MG INJ IV SCH ×2 (09:00)
--- NOTE | 2016-11-08 10:08 | PN ---
Date/Time of Note Date/Time of Note DATE: 11/08/16 TIME: 10:00 Assessment/Plan VTE Prophylaxis VTE Prophylaxis Intervention: SCD's Lines/Catheters IV [facility] Peripheral IV Assessment/Plan Chief Complaint/Hosp Course 1. He is 1 day post op a laproscopic abdominal surgery . He had a small bowel perforation repaired . he is overall doing well. 2. malignant brain tumor , s/p resection 3. benign lung tumor resolved 4. GERD Problems: Subjective 24 Hr Interval Summary Free Text/Dictation He is 1 day post op a laproscopic surgery to repair a small bowel perforation . He is awake and alert without complaints . Constitutional: improved, no complaints Cardiovascular: no complaints Gastrointestinal: no complaints Genitourinary: no complaints Exam/Review of Systems Vital Signs Vitals Vital Signs Date Time Temp Pulse Resp B/P Pulse Ox O2 Delivery O2 Flow Rate FiO2 11/08/16 08:24 64 11/08/16 07:45 97.8 20 100/56 97 11/07/16 21:29 Room Air 11/07/16 20:20 8.0 Intake and Output 11/07/16 11/07/16 11/08/16 15:00 23:00 07:00 Intake Total 2000 ml 300 ml Output Total 305 ml 1600 ml Balance 1695 ml -1300 ml Exam Constitutional: alert, oriented, well developed ENMT: nl external ears & nose, nl lips & teeth, nl nasal mucosa & septum Respiratory: clear to auscultation, normal air movement Cardiovascular: regular rate and rhythm Gastrointestinal: non-tender, soft Musculoskeletal: nl extremities to inspection Results Result Diagram: 11/08/16 0646 11/08/16 0646 Results 24 hrs Laboratory Tests Test 11/07/16 21:40 11/08/16 06:46 Urine Color YELLOW Urine Clarity CLOUDY A Urine pH 5.0 Urine Specific [place] 1.025 Urine Ketones NEGATIVE Urine Nitrite NEGATIVE Urine Bilirubin NEGATIVE Urine Urobilinogen NEGATIVE Urine Leukocyte Esterase NEGATIVE Urine Microscopic RBC 22 H Urine Microscopic WBC 1 Urine Hemoglobin 2+ H Urine Glucose NEGATIVE Urine Total Protein 1+ H White Blood Count 13.0 #H Red Blood Count 4.45 L Hemoglobin 14.0 Hematocrit 40.3 L Mean Corpuscular Volume 90.6 Mean Corpuscular Hemoglobin 31.5 Mean Corpuscular Hemoglobin Concent 34.7 Red Cell Distribution Width 12.1 Platelet Count 283 Mean Platelet Volume 9.7 Neutrophils % 89.1 H Lymphocytes % 5.4 L Monocytes % 5.2 Eosinophils % 0.0 Basophils % 0.1 Nucleated Red Blood Cells % 0.0 Neutrophils # 11.6 H Lymphocytes # 0.7 L Monocytes # 0.7 Eosinophils # 0.0 Basophils # 0.0 Nucleated Red Blood Cells # 0.0 Prothrombin Time 14.9 H Prothrombin Time Ratio 1.2 INR International Normalized Ratio 1.16 Activated Partial Thromboplast Time 34.9 Sodium Level 136 Potassium Level 5.0 Chloride Level 104 Carbon Dioxide Level 27 Anion Gap 10 Blood Urea Nitrogen 10 Creatinine 0.82 Glucose Level 159 Calcium Level 8.9 Phosphorus Level 3.6 Magnesium Level 2.1 Total Bilirubin 0.6 Direct Bilirubin 0.00 Indirect Bilirubin 0.6 Aspartate Amino Transf (AST/SGOT) 19 Alanine Aminotransferase (ALT/SGPT) 39 Alkaline Phosphatase 36 L B-Type Natriuretic Peptide 591 H Total Protein 4.8 #L Albumin 2.5 #L Globulin 2.30 Albumin/Globulin Ratio 1.08 Medications Medications Current Medications Hydromorphone HCl 0.5 mg 0.5 mg Q4H PRN IV PAIN Last administered on 11/08/16 08:26; Admin Dose 0.5 MG; Start 11/07/16 at 07:30 Piperacillin Sod/ Tazobactam Sod 100 ml @ 200 mls/hr Q6 IVPB Last administered on 11/08/16 05:42; Admin Dose 200 MLS/HR; Start 11/07/16 at 08:30 Potassium Chloride/Dextrose/ Sod Cl (D5-1/2ns + KCl 20 Meq) 1,000 ml @ 100 mls/ hr Q10H IV Last administered on 11/07/16 21:54; Admin Dose 100 MLS/HR; Start 11/07/16 at 19:58 Acetaminophen/ Hydrocodone Bitart ([place] (5/325)) 1 tab Q4H PRN PO PAIN LEVEL 4 -7; Start 11/07/16 at 20:00 Acetaminophen/ Hydrocodone Bitart ([place] (5/325)) 2 tab Q4H PRN PO PAIN LEVEL 7 -10; Start 11/07/16 at 20:00 Hydromorphone HCl (Dilaudid) 0.5 mg Q2 PRN IV PAIN; Start 9/20/17 at 20:00 Hydromorphone HCl (Dilaudid) 1 mg Q2 PRN IV PAIN; Start 11/07/16 at 20:00 Docusate Sodium (Colace) 100 mg BID PRN PO CONSTIPATION; Start 11/07/16 at 20: 00 Bisacodyl (Dulcolax Supp) 10 mg BID PRN [place] CONSTIPATION; Start 11/07/16 at 20: 00 Sodium Biphosphate/ Sodium Phosphate (Fleet Enema) 133 ml BID PRN [place] CONSTIPATION; Start 11/07/16 at 20:00 Famotidine (Pepcid Iv) 20 mg DAILY IV Last administered on 11/08/16 08:26; Admin Dose 20 MG; Start 11/08/16 at 09:00 Enoxaparin Sodium (Lovenox) 40 mg DAILY SC Last administered on 11/08/16 08:35 ; Admin Dose 40 MG; Start 11/08/16 at 09:00 HILDA BERRY MD Nov 08, 2016 10:08
--- NOTE | 2016-11-08 13:21 | CONS ---
Date/Time of Note Date/Time of Note DATE: 11/08/16 TIME: 13:18 Consult Date/Type/Reason Admit Date/Time Nov 07, 2016 at 05:31 Initial Consult Date Type of Consultation: GI Subjective Feels well Sitting up in bed, eating Operative findings of small bowel diverticulum noted Objective Vital Signs Date Time Temp Pulse Resp B/P Pulse Ox O2 Delivery O2 Flow Rate FiO2 11/08/16 12:19 66 11/08/16 11:20 98.3 17 145/73 95 11/07/16 21:29 Room Air 11/07/16 20:20 8.0 Abdomen: soft, non tender, incision noted Intake and Output 11/07/16 11/07/16 11/08/16 15:00 23:00 07:00 Intake Total 2000 ml 300 ml Output Total 305 ml 1600 ml Balance 1695 ml -1300 ml Results/Medications Result Diagram: 11/08/16 0646 11/08/16 0646 Results 24 hrs Laboratory Tests Test 11/07/16 21:40 11/08/16 06:46 Urine Color YELLOW Urine Clarity CLOUDY A Urine pH 5.0 Urine Specific [place] 1.025 Urine Ketones NEGATIVE Urine Nitrite NEGATIVE Urine Bilirubin NEGATIVE Urine Urobilinogen NEGATIVE Urine Leukocyte Esterase NEGATIVE Urine Microscopic RBC 22 H Urine Microscopic WBC 1 Urine Hemoglobin 2+ H Urine Glucose NEGATIVE Urine Total Protein 1+ H White Blood Count 13.0 #H Red Blood Count 4.45 L Hemoglobin 14.0 Hematocrit 40.3 L Mean Corpuscular Volume 90.6 Mean Corpuscular Hemoglobin 31.5 Mean Corpuscular Hemoglobin Concent 34.7 Red Cell Distribution Width 12.1 Platelet Count 283 Mean Platelet Volume 9.7 Neutrophils % 89.1 H Lymphocytes % 5.4 L Monocytes % 5.2 Eosinophils % 0.0 Basophils % 0.1 Nucleated Red Blood Cells % 0.0 Neutrophils # 11.6 H Lymphocytes # 0.7 L Monocytes # 0.7 Eosinophils # 0.0 Basophils # 0.0 Nucleated Red Blood Cells # 0.0 Prothrombin Time 14.9 H Prothrombin Time Ratio 1.2 INR International Normalized Ratio 1.16 Activated Partial Thromboplast Time 34.9 Sodium Level 136 Potassium Level 5.0 Chloride Level 104 Carbon Dioxide Level 27 Anion Gap 10 Blood Urea Nitrogen 10 Creatinine 0.82 Glucose Level 159 Calcium Level 8.9 Phosphorus Level 3.6 Magnesium Level 2.1 Total Bilirubin 0.6 Direct Bilirubin 0.00 Indirect Bilirubin 0.6 Aspartate Amino Transf (AST/SGOT) 19 Alanine Aminotransferase (ALT/SGPT) 39 Alkaline Phosphatase 36 L B-Type Natriuretic Peptide 591 H Total Protein 4.8 #L Albumin 2.5 #L Globulin 2.30 Albumin/Globulin Ratio 1.08 Medications Current Medications Hydromorphone HCl 0.5 mg 0.5 mg Q4H PRN IV PAIN Last administered on 11/08/16 08:26; Admin Dose 0.5 MG; Start 11/07/16 at 07:30 Piperacillin Sod/ Tazobactam Sod 100 ml @ 200 mls/hr Q6 IVPB Last administered on 11/08/16 13:07; Admin Dose 200 MLS/HR; Start 11/07/16 at 08:30 Potassium Chloride/Dextrose/ Sod Cl (D5-1/2ns + KCl 20 Meq) 1,000 ml @ 100 mls/ hr Q10H IV Last administered on 11/08/16 13:07; Admin Dose 100 MLS/HR; Start 11/07/16 at 19:58 Acetaminophen/ Hydrocodone Bitart ([place] (5/325)) 1 tab Q4H PRN PO PAIN LEVEL 4 -7; Start 11/07/16 at 20:00 Acetaminophen/ Hydrocodone Bitart ([place] (5/325)) 2 tab Q4H PRN PO PAIN LEVEL 7 -10; Start 11/07/16 at 20:00 Hydromorphone HCl (Dilaudid) 0.5 mg Q2 PRN IV PAIN; Start 11/07/16 at 20:00 Hydromorphone HCl (Dilaudid) 1 mg Q2 PRN IV PAIN; Start 11/07/16 at 20:00 Docusate Sodium (Colace) 100 mg BID PRN PO CONSTIPATION; Start 11/07/16 at 20: 00 Bisacodyl (Dulcolax Supp) 10 mg BID PRN [place] CONSTIPATION; Start 11/07/16 at 20: 00 Sodium Biphosphate/ Sodium Phosphate (Fleet Enema) 133 ml BID PRN [place] CONSTIPATION; Start 11/07/16 at 20:00 Famotidine (Pepcid Iv) 20 mg DAILY IV Last administered on 11/08/16 08:26; Admin Dose 20 MG; Start 11/08/16 at 09:00 Enoxaparin Sodium (Lovenox) 40 mg DAILY SC Last administered on 11/08/16t 08:35 ; Admin Dose 40 MG; Start 11/08/16 at 09:00 Assessment/Plan Chief Complaint/Hosp Course Impression: s/p repair of small bowel diverticulum Plan: Continue post op per Dr. Schaefer and Geri I will sign off for now. Will be happy to see again at your request Problems: CHRISTINA ORDONEZ MD Nov 08, 2016 13:21
--- NOTE | 2016-11-08 15:50 | PN ---
Date/Time of Note Date/Time of Note DATE: 11/08/16 TIME: 15:50 Assessment/Plan Lines/Catheters IV Catheter Type (from Nrs): Peripheral IV Assessment/Plan Assessment/Plan [facility] Progress Note Date of Service: 11/08/2016 Place of service: [facility] fifth floor telemetry Today's Assessment & Plan: Overall stable and doing well. Abdomen appears to be benign. Awaiting further return of bowel function. No indication for acute surgical intervention. With above assessment, I've recommended the following for today: 1. Increase activity 2. Increase incentive spirometry 3. Continue regular diet 4. Discontinue Brothers catheter 5. Saline lock IV 6. Transfer to [facility] 7. Labs in a.m. 8. DC antimicrobials 9. Possible discharge home tomorrow morning Thank you again for your great care of this very pleasant patient and wonderful family. If there are any questions, please feel free to call me at [phone]. Nature of presenting problem: High severity Please note that, given the extensive number of diagnoses or management options , the moderate amount and/or complexity of data needed to be reviewed, and high risk of complications and/or morbidity or mortality, this qualifies as high complexity type of decision-making. Disclaimers: 1. Inadvertent spelling and grammatical errors are likely due to electronic health record (EHR)/dictation software use and do not reflect on the quality of delivered patient care. 2. The electronic timestamp recorded on this note does not necessarily reflect the actual date and time of the visit. 3. Portions of this note are created through electronic templates and computer algorithms that may bring in information either from the system or from other physicians and providers that are outside of my control and may not be always accurate. In general (but not always) this happens either in the beginning or at the end of the note. My portions of the gathered data are generally dictated in 1 continuous block of text and entered into one field in the EHR. 4. There may be other unanticipated errors in the note that are outside of my control. I can only attest to the portions of the note that I have created. Updated Clinical Summary: Comorbidities: 1. Perforated small intestine from small intestine diverticulosis and diverticulitis. S/p laparoscopic, hand-assisted (hybrid) partial enterectomy ( 60 cm proximal jejunum) with primary anastomosis, lysis of adhesions, abdominal lavage, and umbilical hernia repair (no mesh) 2. History of malignant brain tumor in 1966. Received cobalt treatment with plate insertion. 3. 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 4. History of a "bursa sac" removed from his neck. 5. Left knee arthroscopic surgery in 2010. 6. Colonoscopy in February 2013 that revealed a polyp. 7. No history of diabetes, heart disease. 8. History of low testosterone level. 9. GERD. Subjective: No major events or complaints; no abd pain and under control with medications; no n/v/d; no sob or cp; - flatus; - BM; - activity Objective: Vitals: See below I's & O's: See below Exam: GENERAL: On exam, the patient was lying in bed and appeared to be comfortable and in no acute distress. ABDOMEN: Soft, nontender and nondistended. Incision dressings are clean, dry and intact without any evidence of obvious underlying erythema, edema, discharge , or hernia. Surgical drain ss. There are no peritoneal signs or guarding. SKIN: Skin appears to be pink and feels warm to touch. NEUROLOGIC: Patient is awake, alert, and follows commands appropriately. Labs: See below Exam/Review of Systems Vital Signs Vitals Vital Signs Date Time Temp Pulse Resp B/P Pulse Ox O2 Delivery O2 Flow Rate FiO2 11/08/16 15:24 97.9 78 20 151/78 97 11/07/16 21:29 Room Air 11/07/16 20:20 8.0 Intake and Output 11/07/16 11/07/16 11/08/16 15:00 23:00 07:00 Intake Total 2000 ml 300 ml Output Total 305 ml 1600 ml Balance 1695 ml -1300 ml Results Result Diagram: 11/08/16 0646 11/08/16 0646 JOHANNA NOE M.D. Nov 08, 2016 15:50
[2016-11-09 07:43] VITALS: BP 132/76; RESP 20
[2016-11-09 08:51] LABS: BASOPHILS % 0.3 % (0.0-2.0); EOSINOPHILS # 0.5 10^3/ul (0.0-0.5); EOSINOPHILS % 4.5 % (0.0-7.0); HEMOGLOBIN 13.9 g/dl (14.0-18.0); LYMPHOCYTES # 1.4 10^3/ul (0.8-2.9); LYMPHOCYTES % 11.6 % (15.0-51.0); MEAN CORPUSCULAR HGB CONC 33.9 g/dl (32.0-37.0); MEAN CORPUSCULAR VOLUME 91.5 fl (82.0-101.0); MEAN PLATELET VOLUME 9.3 fl (7.4-10.4); MONOCYTE # 0.7 10^3/ul (0.3-0.9); NEUTROPHIL # 9.1 10^3/ul (1.6-7.5); NEUTROPHILS % 77.1 % (39.0-77.0); PLATELET COUNT 358 10^3/UL (140-415); RED BLOOD COUNT 4.48 10^6/ul (4.70-6.10); WHITE BLOOD COUNT 11.8 10^3/ul (4.8-10.8)
[2016-11-09 09:11] LABS: INR 1.06; PROTIME 13.8 Sec (12.2-14.2); PT RATIO 1.1
[2016-11-09 09:12] LABS: PARTIAL THROMBOPLASTIN TIME 35.4 Sec (25.0-35.0)
[2016-11-09 09:18] LABS: ALBUMIN 2.8 g/dl (3.3-4.9); ALBUMIN/GLOBULIN RATIO 0.96; BILIRUBIN,INDIRECT 0.4 mg/dl (0-1.1); BILIRUBIN,TOTAL 0.4 mg/dl (0.2-1.3); CALCIUM 8.7 mg/dl (8.4-10.2); CREATININE 0.75 mg/dl (0.61-1.24); TOTAL PROTEIN 5.7 g/dl (6.1-8.1)
[2016-11-09 09:28] LABS: MAGNESIUM 1.8 mg/dl (1.7-2.5); PHOSPHORUS 3.2 mg/dl (2.5-4.9)
[2016-11-09] MEDS: DOCUSATE SODIUM 100 MG CAP PO PRN ×2 (10:36→20:46)
[2016-11-09] MEDS: ENOXAPARIN 40 MG/0.4 ML SYG SC SCH ×2 (10:44→10:47)
[2016-11-09 11:22] VITALS: BP 140/77; RESP 20
--- NOTE | 2016-11-09 11:47 | PN ---
Date/Time of Note Date/Time of Note DATE: 11/09/16 TIME: 11:43 Assessment/Plan VTE Prophylaxis VTE Prophylaxis Intervention: ambulation Lines/Catheters IV [facility]from [facility] Saline Lock Urinary Cath still in place: No Assessment/Plan Chief Complaint/Hosp Course 1. He is 2 days post op a laproscopic abdominal surgery . He had a small bowel perforation repaired . he is overall doing well. He is up walking without assistance. He is passing gas but has not had a bowel movement. The surgeon will discharge him when he feels he is ready to be discharged. 2. malignant brain tumor , s/p resection 3. benign lung tumor resolved 4. GERD Problems: Subjective 24 Hr Interval Summary Free Text/Dictation He is now 2 days postop a laparoscopic abdominal surgery to repair a perforated small bowel. He is up walking around. He is passing gas but has not had a bowel movement. Constitutional: no complaints Eyes: no complaints ENT: no complaints Respiratory: no complaints Cardiovascular: no complaints Gastrointestinal: pain Neurologic: no complaints Exam/Review of Systems Vital Signs Vitals Vital Signs Date Time Temp Pulse Resp B/P Pulse Ox O2 Delivery O2 Flow Rate FiO2 11/09/16 11:22 99.8 74 20 140/77 98 11/07/16 21:29 Room Air 11/07/16 20:20 8.0 Intake and Output 11/08/16 11/08/16 11/09/16 15:00 23:00 07:00 Intake Total 1380 ml 350 ml Output Total 2400 ml 800 ml Balance -1020 ml -450 ml Exam Constitutional: alert, oriented, well developed Psych: no complaints Respiratory: clear to auscultation, normal air movement Cardiovascular: nl pulses, regular rate and rhythm Gastrointestinal: soft, tender Musculoskeletal: nl extremities to inspection Results Result Diagram: 11/09/16 0732 11/09/16 0732 Results 24 hrs Laboratory Tests Test 11/09/16 07:32 White Blood Count 11.8 H Red Blood Count 4.48 L Hemoglobin 13.9 L Hematocrit 41.0 L Mean Corpuscular Volume 91.5 Mean Corpuscular Hemoglobin 31.0 Mean Corpuscular Hemoglobin Concent 33.9 Red Cell Distribution Width 12.0 Platelet Count 358 # Mean Platelet Volume 9.3 Neutrophils % 77.1 H Lymphocytes % 11.6 L Monocytes % 6.0 Eosinophils % 4.5 Basophils % 0.3 Nucleated Red Blood Cells % 0.0 Neutrophils # 9.1 H Lymphocytes # 1.4 Monocytes # 0.7 Eosinophils # 0.5 Basophils # 0.0 Nucleated Red Blood Cells # 0.0 Prothrombin Time 13.8 Prothrombin Time Ratio 1.1 INR International Normalized Ratio 1.06 Activated Partial Thromboplast Time 35.4 H Sodium Level 135 Potassium Level 4.0 Chloride Level 100 Carbon Dioxide Level 30 Anion Gap 9 Blood Urea Nitrogen 13 Creatinine 0.75 Glucose Level 85 # Lactic Acid Level 1.3 Calcium Level 8.7 Phosphorus Level 3.2 Magnesium Level 1.8 Total Bilirubin 0.4 Direct Bilirubin 0.00 Indirect Bilirubin 0.4 Aspartate Amino Transf (AST/SGOT) 22 Alanine Aminotransferase (ALT/SGPT) 42 Alkaline Phosphatase 48 B-Type Natriuretic Peptide 678 H Total Protein 5.7 L Albumin 2.8 L Globulin 2.90 Albumin/Globulin Ratio 0.96 Medications Medications Current Medications Hydromorphone HCl (Dilaudid) 0.5 mg Q4H PRN IV PAIN Last administered on 17:06; Admin Dose 0.5 MG; Start 11/07/16 at 07:30 Acetaminophen/ Hydrocodone Bitart ([place] (5/325)) 1 tab Q4H PRN PO PAIN LEVEL 4 -7; Start 11/07/16 at 20:00 Acetaminophen/ Hydrocodone Bitart (Eugene (5/325)) 2 tab Q4H PRN PO PAIN LEVEL 7 -10 Last administered on 11/08/16 22:54; Admin Dose 2 TAB; Start 11/07/16 at 20 :00 Hydromorphone HCl (Dilaudid) 0.5 mg Q2 PRN IV PAIN; Start 11/07/16 at 20:00 Hydromorphone HCl (Dilaudid) 1 mg Q2 PRN IV PAIN; Start 11/07/16 at 20:00 Docusate Sodium (Colace) 100 mg BID PRN PO CONSTIPATION Last administered on 10:36; Admin Dose 100 MG; Start 11/07/16 at 20:00 Bisacodyl (Dulcolax Supp) 10 mg BID PRN NC CONSTIPATION; Start 11/07/16 at 20: 00 Sodium Biphosphate/ Sodium Phosphate (Fleet Enema) 133 ml BID PRN NC CONSTIPATION; Start 11/07/16 at 20:00 Enoxaparin Sodium (Lovenox) 40 mg DAILY SC Last administered on 11/09/16t 10:44 ; Admin Dose 40 MG; Start 11/08/16 at 09:00 HILDA BERRY MD Nov 09, 2016 11:47
[2016-11-09 15:23] VITALS: BP 155/83; RESP 20
--- NOTE | 2016-11-09 17:21 | PN ---
Date/Time of Note Date/Time of Note DATE: 11/09/16 TIME: 17:18 Assessment/Plan Lines/Catheters IV Catheter Type (from Nrs): Saline Lock Brothers in Place (from Nrs): No Assessment/Plan Assessment/Plan [facility] Progress Note Date of Service: 11/09/2016 Place of service: [facility] fifth floor telemetry Today's Assessment & Plan: Overall stable and doing well. Abdomen appears to be benign. Awaiting further return of bowel function. No indication for acute surgical intervention. With above assessment, I've recommended the following for today: 1. Increase activity 2. Increase incentive spirometry 3. Continue regular diet 4. Keep in MedSurg 5. Possible discharge home tomorrow morning Thank you again for your great care of this very pleasant patient and wonderful family. If there are any questions, please feel free to call me at [phone]. Nature of presenting problem: High severity Please note that, given the extensive number of diagnoses or management options , the moderate amount and/or complexity of data needed to be reviewed, and high risk of complications and/or morbidity or mortality, this qualifies as high complexity type of decision-making. Disclaimers: 1. Inadvertent spelling and grammatical errors are likely due to electronic health record (EHR)/dictation software use and do not reflect on the quality of delivered patient care. 2. The electronic timestamp recorded on this note does not necessarily reflect the actual date and time of the visit. 3. Portions of this note are created through electronic templates and computer algorithms that may bring in information either from the system or from other physicians and providers that are outside of my control and may not be always accurate. In general (but not always) this happens either in the beginning or at the end of the note. My portions of the gathered data are generally dictated in 1 continuous block of text and entered into one field in the EHR. 4. There may be other unanticipated errors in the note that are outside of my control. I can only attest to the portions of the note that I have created. Updated Clinical Summary: Very pleasant 65-year-old gentleman, status post emergency laparoscopic, hand- assisted exploration of abdominal cavity with partial enterectomy of proximal jejunum (60 cm) for small bowel diverticulosis with diverticulitis and focal perforation with abscess [facility] 11/07/2016. Comorbidities: 1. Perforated small intestine from small intestine diverticulosis and diverticulitis. S/p laparoscopic, hand-assisted (hybrid) partial enterectomy ( 60 cm proximal jejunum) with primary anastomosis, lysis of adhesions, abdominal lavage, and umbilical hernia repair (no mesh) [facility] 11/07/16 2. History of malignant brain tumor in 1965. Received cobalt treatment with plate insertion. 3. 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 4. History of a "bursa sac" removed from his neck. 5. Left knee arthroscopic surgery in 2010. 6. Colonoscopy in February 2013 that revealed a polyp. 7. No history of diabetes, heart disease. 8. History of low testosterone level. 9. GERD. Subjective: No major events or complaints; no major abd pain and under control with medications; no n/v/d; no sob or cp; + flatus; - BM; + activity Objective: Vitals: See below I's & O's: See below Exam: GENERAL: On exam, the patient was lying in bed and appeared to be comfortable and in no acute distress. ABDOMEN: Soft, nontender and nondistended. Incision dressings d/c'd and incisions are clean, dry and intact without any evidence of obvious erythema, edema, discharge, or hernia. Surgical drain ss. There are no peritoneal signs or guarding. SKIN: Skin appears to be pink and feels warm to touch. NEUROLOGIC: Patient is awake, alert, and follows commands appropriately. Labs: See below Exam/Review of Systems Vital Signs Vitals Vital Signs Date Time Temp Pulse Resp B/P Pulse Ox O2 Delivery O2 Flow Rate FiO2 11/09/16 15:23 99.8 78 20 155/83 96 11/07/16 21:29 Room Air 11/07/16 20:20 8.0 Intake and Output 11/08/16 11/08/16 11/09/16 15:00 23:00 07:00 Intake Total 1380 ml 350 ml Output Total 2400 ml 800 ml Balance -1020 ml -450 ml Results Result Diagram: 11/09/16 0732 11/09/16 0732 JOHANNA NOE M.D. Nov 09, 2016 17:21
[2016-11-09] MEDS ORDERED: FUROSEMIDE 20 MG INJ IV ONE (17:30)
[2016-11-09 19:57] VITALS: BP 145/82; RESP 19
[2016-11-09] MEDS ORDERED: FAMOTIDINE 20 MG TAB PO SCH (21:00)
[2016-11-09 21:42] VITALS: BP 135/83; RESP 19
[2016-11-10 02:07] VITALS: BP 127/71; RESP 18
[2016-11-10 07:35] VITALS: BP 131/81; RESP 18
[2016-11-10] MEDS: ENOXAPARIN 40 MG/0.4 ML SYG SC SCH (08:41)
--- NOTE | 2016-11-10 10:45 | PN ---
Date/Time of Note Date/Time of Note DATE: 11/10/16 TIME: 10:42 Assessment/Plan Lines/Catheters IV Catheter Type (from Nrs): Saline Lock Brothers in Place (from Nrs): No Assessment/Plan Assessment/Plan [facility] Progress Note Date of Service: 11/10/2016 Place of service: [facility] fifth floor telemetry Today's Assessment & Plan: Overall stable and doing well. Abdomen appears to be benign. No indication for acute surgical intervention. Path pending. Okay to discharge from my standpoint. I do not suspect wound infection and for this reason, no need for antimicrobial therapy. But I do recommend early follow-up next week with patient's primary care physician's office and with lab checks and follow with me in my office in 2 weeks. With above assessment, I've recommended the following for today: 1. D/c home 2. Please set up for outpatient lab check and follow-up with primary care physician's office early next week, as well as follow-up with me in my office in 2 weeks 3. Please include the following in the patient's discharge instructions: "Please call [phone] if any of fever, nausea, vomiting, discharge from wound, wound redness, increase or sudden pain, blood in stool or vomit, or any other unusual signs or symptoms. Also, please call the same number in a few days to schedule an appointment for your follow up visit. Patient may remove dressings tomorrow. Showers OK starting tomorrow. No swimming , hot tub or bath for 2 weeks. No lifting more than 25 lbs for 8 weeks." Thank you again for your great care of this very pleasant patient and wonderful family. If there are any questions, please feel free to call me at [phone]. Nature of presenting problem: High severity Please note that, given the extensive number of diagnoses or management options , the moderate amount and/or complexity of data needed to be reviewed, and high risk of complications and/or morbidity or mortality, this qualifies as high complexity type of decision-making. Disclaimers: 1. Inadvertent spelling and grammatical errors are likely due to electronic health record (EHR)/dictation software use and do not reflect on the quality of delivered patient care. 2. The electronic timestamp recorded on this note does not necessarily reflect the actual date and time of the visit. 3. Portions of this note are created through electronic templates and computer algorithms that may bring in information either from the system or from other physicians and providers that are outside of my control and may not be always accurate. In general (but not always) this happens either in the beginning or at the end of the note. My portions of the gathered data are generally dictated in 1 continuous block of text and entered into one field in the EHR. 4. There may be other unanticipated errors in the note that are outside of my control. I can only attest to the portions of the note that I have created. Updated Clinical Summary: Very pleasant 65-year-old gentleman, status post emergency laparoscopic, hand- assisted exploration of abdominal cavity with partial enterectomy of proximal jejunum (60 cm) for small bowel diverticulosis with diverticulitis and focal perforation with abscess [facility] 11/07/2016. Comorbidities: 1. Perforated small intestine from small intestine diverticulosis and diverticulitis. S/p laparoscopic, hand-assisted (hybrid) partial enterectomy ( 60 cm proximal jejunum) with primary anastomosis, lysis of adhesions, abdominal lavage, and umbilical hernia repair (no mesh) [facility] 11/07/16 2. History of malignant brain tumor in 1966. Received cobalt treatment with plate insertion. 3. 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 4. History of a "bursa sac" removed from his neck. 5. Left knee arthroscopic surgery in 2010. 6. Colonoscopy in February 2013 that revealed a polyp. 7. No history of diabetes, heart disease. 8. History of low testosterone level. 9. GERD. Subjective: No major events or complaints; no major abd pain and under control with medications; no n/v/d; no sob or cp; + flatus; + BM; + activity Objective: Vitals: See below I's & O's: See below Exam: GENERAL: On exam, the patient was lying in bed and appeared to be comfortable and in no acute distress. ABDOMEN: Soft, nontender and nondistended. Incisions are clean, dry and intact without any evidence of obvious edema, discharge, or hernia. Minor erythema around the incision is noted, but this does not appear to be a wound infection. There are no peritoneal signs or guarding. SKIN: Skin appears to be pink and feels warm to touch. NEUROLOGIC: Patient is awake, alert, and follows commands appropriately. Labs: See below Exam/Review of Systems Vital Signs Vitals Vital Signs Date Time Temp Pulse Resp B/P Pulse Ox O2 Delivery O2 Flow Rate FiO2 11/10/16 07:35 98.6 66 18 131/81 95 11/07/16 21:29 Room Air 11/07/16 20:20 8.0 Intake and Output 11/09/16 11/09/16 11/10/16 15:00 23:00 07:00 Intake Total 1125 ml 350 ml Output Total 1800 ml 300 ml Balance -675 ml 50 ml Results Result Diagram: 11/09/16 0732 11/09/16 0732 JOHANNA NOE M.D. Nov 10, 2016 10:45
--- NOTE | 2016-11-10 10:51 | PDOCDIS ---
Discharge Instructions CONDITION Patient Condition: Stable HOME CARE INSTRUCTIONS: Special Diet: Regular FOLLOW UP/APPOINTMENTS Follow-up Plan Please call [phone] if any of fever, nausea, vomiting, discharge from wound , wound redness, increase or sudden pain, blood in stool or vomit, or any other unusual signs or symptoms. Also, please call the same number in a few days to schedule an appointment for your follow up visit. Patient may remove dressings tomorrow. Showers OK starting tomorrow. No swimming , hot tub or bath for 2 weeks. No lifting more than 25 lbs for 8 weeks. SANTO VYAS MD Nov 10, 2016 10:51
--- NOTE | 2016-11-10 10:59 | DS ---
Date/Time of Note Date/Time of Note DATE: 11/10/16 TIME: 10:56 Discharge Summary Admission/Discharge Info Admit Date/Time Nov 07, 2016 at 05:31 Discharge Date/Time Patient Condition: Stable Hospital Course Patient admitted for abdominal pain 2/2 perforated small bowel 2/2 diverticulosis. Patient is now s/p laparoscopic abdominal surgery. Patient is tolerating oral diet, ambulating, passing flatus, and had a small BM prior to discharge. Patient will follow up with Dr. Yang next week, and surgeon within 2 weeks of discharge. Home Meds Discontinued Reported Medications Multivitamins* (Theragran*) 1 Tab Tab, 1 TAB PO DAILY, TAB 11/07/16 Lansoprazole* (Prevacid*) 30 Mg Capsule.dr, 30 MG PO DAILY, CAP 01/19/14 Follow-up Plan Please call [phone] if any of fever, nausea, vomiting, discharge from wound , wound redness, increase or sudden pain, blood in stool or vomit, or any other unusual signs or symptoms. Also, please call the same number in a few days to schedule an appointment for your follow up visit. Patient may remove dressings tomorrow. Showers OK starting tomorrow. No swimming , hot tub or bath for 2 weeks. No lifting more than 25 lbs for 8 weeks. Primary Care Provider Lyle Yang MD Time spent on discharge: > 30 minutes SANTO VYAS MD Nov 10, 2016 10:59
[2016-11-10 14:11] VITALS: BP 132/75; RESP 16
== END 2016-11-10 14:55 | disposition home or self-care (01) | DRG 330 ==
LOC: E/R 02:44 → TEL 05:31 → PP2 11-09 20:07
PROVIDERS: ADMIT Internal Medicine; ATTEND Internal Medicine
PROC: 0DNA0ZZ Release Jejunum, Open Approach (ICD-10-PCS; 2016-11-07)
PROC: 0WQF0ZZ Repair Abdominal Wall, Open Approach (ICD-10-PCS; 2016-11-07)
PROC: 0DBA0ZZ Excision of Jejunum, Open Approach (ICD-10-PCS; principal; 2016-11-07 14:00)
DX: K57.00 Diverticulitis of small intestine with perforation and abscess without bleeding (principal); K42.9 Umbilical hernia without obstruction or gangrene; Z53.31 Laparoscopic surgical procedure converted to open procedure; K66.0 Peritoneal adhesions (postprocedural) (postinfection); Z85.841 Personal history of malignant neoplasm of brain; Z86.010 Personal history of colon polyps
CPT/HCPCS: 36415; 71010; 74000; 74176; 80048; 80053; 81001; 83605; 83690; 83735; 83880; 84100; 85025; 85610; 85730; 87070; 87102; 88302; 88307; 93005; 96361; 96365; 96375; 96376; J1940; C9113; J1100; J1170; J1650; J2250; J2270; J2405; J2543; J2795; J3010; J3480; J7040; J7042; J7999

== ENCOUNTER → 2016-11-28 | Outpatient (CLI) | payer MEDICARE, OTHER ==
[~2016-11-28] VITALS: Ht 170.2 cm; Wt 70.0 kg
[2016-11-28 14:22] VITALS: BP 139/78; PULSE 74; RESP 18; Ht 170.2 cm; Wt 70.0 kg
--- NOTE | 2016-11-28 14:56 | PN ---
Date/Time of Note Date/Time of Note DATE: 11/28/16 TIME: 14:34 Assessment/Plan Assessment/Plan Assessment/Plan [facility] Progress Note Date of Service: 11/28/2016 Place of service: [facility] Today's Assessment & Plan: Overall stable and doing well. Abdomen appears to be benign. No evidence for any major postoperative complications or wound problems. No indication for acute surgical intervention. Path showed small bowel diverticular disease with perforation (no malignancy). I am very happy about the patient's outcome and at this point, discharge him to the capable hands of his primary care physician , Dr. Yang. Please also note that the patient does not have any clinically significant evidence of bilateral groin hernias. For this reason, I have recommended that he follows up with us symptomatically for this process as well. With above assessment, I've recommended the following for today: 1. F/u with Dr. Yang 2. Follow-up with us as needed Thank you again for your great care of this very pleasant patient and wonderful family. If there are any questions, please feel free to call me at [phone]. Nature of presenting problem: High severity Please note that, given the extensive number of diagnoses or management options , the moderate amount and/or complexity of data needed to be reviewed, and high risk of complications and/or morbidity or mortality, this qualifies as high complexity type of decision-making. Disclaimers: 1. Inadvertent spelling and grammatical errors are likely due to electronic health record (EHR)/dictation software use and do not reflect on the quality of delivered patient care. 2. The electronic timestamp recorded on this note does not necessarily reflect the actual date and time of the visit. 3. Portions of this note are created through electronic templates and computer algorithms that may bring in information either from the system or from other physicians and providers that are outside of my control and may not be always accurate. In general (but not always) this happens either in the beginning or at the end of the note. My portions of the gathered data are generally dictated in 1 continuous block of text and entered into one field in the EHR. 4. There may be other unanticipated errors in the note that are outside of my control. I can only attest to the portions of the note that I have created. Updated Clinical Summary: Very pleasant 65-year-old gentleman, status post emergency laparoscopic, hand- assisted exploration of abdominal cavity with partial enterectomy of proximal jejunum (60 cm) for small bowel diverticulosis with diverticulitis and focal perforation with abscess [facility] 11/07/2016. D/c home . Comorbidities: 1. Perforated small intestine from small intestine diverticulosis and diverticulitis. S/p laparoscopic, hand-assisted (hybrid) partial enterectomy ( 60 cm proximal jejunum) with primary anastomosis, lysis of adhesions, abdominal lavage, and umbilical hernia repair (no mesh) [facility] 11/07/16 2. History of malignant brain tumor in 1965. Received cobalt treatment with plate insertion. 3. 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 4. History of a "bursa sac" removed from his neck. 5. Left knee arthroscopic surgery in 2010. 6. Colonoscopy in February 2013 that revealed a polyp. 7. No history of diabetes, heart disease. 8. History of low testosterone level. 9. GERD. Subjective: No major events or complaints since discharge home; no major abd pain and under control with medications; no n/v/d; no sob or cp; + flatus; + BM; + activity Objective: Vitals: See below Exam: GENERAL: On exam, the patient was sitting in a chair and appeared to be comfortable and in no acute distress. ABDOMEN: Soft, nontender and nondistended. Incisions are clean, dry and intact without any evidence of obvious edema, discharge, or hernia. There are no peritoneal signs or guarding. Bilateral groin exams show no evidence of clinically relevant hernias with Valsalva maneuver in a standing position. SKIN: Skin appears to be pink and feels warm to touch. NEUROLOGIC: Patient is awake, alert, and follows commands appropriately. JOHANNA NOE M.D. Nov 28, 2016 14:56
== END | disposition home or self-care (01) ==
LOC: HPC 14:11
PROVIDERS: ATTEND Transplant Surgery
DX: K57.80 Diverticulitis of intestine, part unspecified, with perforation and abscess without bleeding (principal); Z85.841 Personal history of malignant neoplasm of brain